=== PATIENT | male | born 1995 | race Caucasian/White ===

== ENCOUNTER 2024-04-04 23:13 | Emergency (ER) | payer OTHER, SELFPAY ==
[2024-04-04 23:19] VITALS: BP 138/78; PULSE 69; TEMP 36.6; O2SAT 100; BMI 25.5
--- NOTE | 2024-04-04 23:23 | ED_ITS ---
HPI HPI - Extremity Injury (Upper) General Chief Complaint: Extremity Injury, Upper Stated Complaint: UE PAIN Time Seen by Provider: 04/04/24 23:20 Source: patient Mode of arrival: walk-in Limitations: no limitations History of Present Illness HPI narrative: playing around tonight and fell onto his right shoulder. immediate pain. No weakness or numbness Related Data Home Medications ?Medication ?Instructions ?Recorded ?Confirmed No Known Home Medications 04/04/24 04/04/24 Allergies Allergy/AdvReac Type Severity Reaction Status Date / Time metoclopramide [From Reglan] AdvReac Anxiety Verified 04/04/24 23:24 Opioid HPI Opioid Management Most Recent Pain and Opioid Data: Last Pain Scale 7 04/04/24 23:40 Last ED Pain Assessment 04/04/24 23:29 Review of Systems ROS Status of ROS 10 or more systems reviewed and unremark able except as noted in history and below Exam Constitutional Vital Signs, click to edit/add: Last Vital Signs Temp 97.9 F 04/04/24 23:19 Pulse 69 04/04/24 23:19 Resp 16 04/04/24 23:19 BP 138/78 04/04/24 23:19 Pulse Ox 100 04/04/24 23:19 O2 Del Method Room Air 04/04/24 23:19 Common normals: no apparent distress, average body habitus, oriented x3, no limitations, healthy appearing, alert and well nourished [facility] Common normals: normocephalic and head/scalp atraumatic Eye Common normals: EOMs intact bilaterally and conjunctivae normal Chest Common normals: inspection of chest normal and palpation of chest normal Respiratory Common normals: normal respiratory effort, no retractions, no use of accessory muscles and clear to auscultation bilaterally Cardio Common normals: regular rate, regular rhythm, S1 normal heart sound and S2 normal heart sound GI Common normals: Normal to inspection, nondistended, normoactive bowel sounds present and soft to palpation Extremity Common normals: normal to inspection and full ROM Other: right humeral head tender. no deformity. right elbow and forearm/wrist neg Neuro Common normals: oriented x3, CN's II-XII intact bilaterally, moves all extremities and no focal motor deficits Psych Appearance: grossly normal Course Vital Signs Vital signs: Vital Signs Temperature 97.9 F 08/10/24 23:19 Pulse Rate 69 04/04/24 23:19 Respiratory Rate 16 04/04/24 23:19 Blood Pressure 138/78 04/04/24 23:19 Pulse Oximetry 100 04/04/24 23:19 Oxygen Delivery Method Room Air 04/04/24 23:19 Temperature 97.9 F 04/04/24 23:19 Pulse Rate 69 04/04/24 23:19 Respiratory Rate 16 04/04/24 23:19 Blood Pressure 138/78 04/04/24 23:19 Pulse Oximetry 100 04/04/24 23:19 Oxygen Delivery Method Room Air 04/04/24 23:19 MDM - Extremity Injury (Upper) MDM Narrative Medical decision making narrative: patient presents after falling and striking his left shoulder. No deformity. xray per my review is neg for fracture. N/V RUE normal. patient placed in a sling and discharged to follow up with orthopedics Discharge Plan Discharge Stand Alone Forms: Portal Instructions Chief Complaint: Extremity Injury, Upper Clinical Impression: Contusion of right shoulder Patient Disposition: Home, Self-Care Prescriptions / Home Meds: No Action No Known Home Medications Print Language: [place] Instructions: Contusion in Adults (ED) Additional Instructions: follow up with Dr Parnell Referrals: Physician,Non-Staff, [Primary Care Provider] - 1 week
--- NOTE | 2024-04-04 23:25 | XR_ITS ---
[facility] [place] [id number] Patient Name: JORGE MADRID MRN: [id number] date: 1995 Sex: M Assigned Patient Location: ER Current Patient Location: Accession/Order Number: [id number] Exam Date: 04/04/2024 23:35 Report Date: 04/05/2024 02:37 At the request of: CHANG NERI Procedure: XR shoulder RT min 2V EXAM: XR shoulder RT min 2V HISTORY: injury COMPARISON: None. TECHNIQUE: 3 views of the right shoulder FINDINGS: No acute fracture seen. Joint alignment is normal. Joint spaces are preserved. Soft tissues appear unremarkable. XR/XR shoulder RT min 2V IMPRESSION: No acute fracture or malalignment. Electronically authenticated by: LAURA NORTON Date: 04/05/2024 02:37
[2024-04-04] MEDS: IBUPROFEN 400 MG TABLET 800 MG PO (23:40)
--- NOTE | 2024-04-05 01:12 | ED.UPPEXIN1 ---
HPI HPI - Extremity Injury (Upper) General Chief Complaint: Extremity Injury, Upper Stated Complaint: UE PAIN Time Seen by Provider: 04/04/24 23:20 Source: patient Mode of arrival: walk-in Limitations: no limitations History of Present Illness HPI narrative: patient rolled his 4 edgar. States the roll bar came down on his left arm. Points to his humerus. Denies head injury. No headache or neck pain. Denies numbness of his extremities. No chest or rib pain. No complaint of abdominal pain or back pain. Related Data Home Medications ?Medication ?Instructions ?Recorded ?Confirmed No Known Home Medications 04/04/24 04/04/24 Allergies Allergy/AdvReac Type Severity Reaction Status Date / Time metoclopramide [From Reglan] AdvReac Anxiety Verified 04/04/24 23:24 Opioid HPI Opioid Management Most Recent Pain and Opioid Data: Last Pain Scale 7 04/04/24 23:40 Last ED Pain Assessment 04/04/24 23:29 Review of Systems ROS Status of ROS 10 or more systems reviewed and unremarkable except as noted in history and below Exam Constitutional Vital Signs, click to edit/add: Last Vital Signs Temp 97.9 F 04/04/24 23:19 Pulse 86 04/05/24 01:38 Resp 16 04/05/24 01:38 BP 111/59 04/05/24 01:38 Pulse Ox 97 04/05/24 01:38 O2 Del Method Room Air 04/05/24 01:38 Common normals: no apparent distress, oriented x3, healthy appearing, alert and well nourished [facility] Common normals: normocephalic and head/scalp atraumatic Eye Common normals: PERRL, EOMs intact bilaterally and conjunctivae normal Neck & C-Spine Common normals: full ROM Chest Common normals: inspection of chest normal and palpation of chest normal Respiratory Common normals: normal respiratory effort, no retractions, no use of accessory muscles and clear to auscultation bilaterally Cardio Common normals: regular rate, regular rhythm, S1 normal heart sound and S2 normal heart sound GI Common normals: Normal to inspection, nondistended, normoactive bowel sounds present, soft to palpation and non-tender Extremity Other: swelling contusion mid left humerus. Positive tenderness. No obvious deformity. Left shoulder and elbow nontender . Normal exam left forearm and hand. Neuro Common normals: oriented x3, CN's II-XII intact bilaterally, moves all extremities, no focal motor deficits and no sensory deficits noted Psych Appearance: grossly normal Course Vital Signs Vital signs: Vital Signs Temperature 97.9 F 04/04/24 23:19 Pulse Rate 69 04/04/24 23:19 Respiratory Rate 16 04/04/24 23:19 Blood Pressure 138/78 04/04/24 23:19 Pulse Oximetry 100 04/04/24 23:19 Oxygen Delivery Method Room Air 04/04/24 23:19 Temperature 97.9 F 04/04/24 23:19 Pulse Rate 86 04/05/24 01:38 Respiratory Rate 16 04/05/24 01:38 Blood Pressure 111/59 04/05/24 01:38 Pulse Oximetry 97 04/05/24 01:38 Oxygen Delivery Method Room Air 04/05/24 01:38 MDM - Extremity Injury (Upper) MDM Narrative Medical decision making narrative: patient fell onto right shoulder. Presents with pain but no deformity. xray neg for fracture. Patient placed in a sling and discharged home to follow up with orthopedics Imaging Data Chest x-ray: Radiologist's impression: ITS Impressions Shoulder X-Ray 04/04/24 23:25 IMPRESSION: No acute fracture or malalignment. Electronically authenticated by: LAURA NORTON Date: 04/05/2024 02:37 Discharge Plan Discharge Stand Alone Forms: Portal Instructions Chief Complaint: Extremity Injury, Upper Clinical Impression: Contusion of right shoulder Patient Disposition: Home, Self-Care Condition: Good Mode of Transportation: Private Vehicle Prescriptions / Home Meds: No Action No Known Home Medications Print Language: Malay Instructions: Contusion in Adults (ED) Additional Instructions: follow up with Dr Parnell Referrals: Physician,Non-Staff, [Primary Care Provider] - 1 week Cooper Parnell MD [Physician] - 04/06/24 10:45 am Discharge Date/Time: 04/05/24 01:38
[2024-04-05 01:38] VITALS: BP 111/59; PULSE 86; O2SAT 97
== END 2024-04-05 01:38 | disposition home or self-care (01) ==
PROVIDERS: Emergency Provider Internal Medicine
DX: S40.011A Contusion of right shoulder, initial encounter (principal); W19.XXXA Unspecified fall, initial encounter
CPT/HCPCS: 73030; 99283

== ENCOUNTER 2024-04-09 09:24 | Outpatient (OUT) | payer OTHER, SELFPAY ==
--- NOTE | 2024-04-09 09:31 | MR_ITS ---
The [address] [address] Patient Name: JORGE MADRID MRN: [id number] date: 1995 Sex: M Assigned Patient Location: MRI Current Patient Location: MRI Accession/Order Number: [id number] Exam Date: 04/09/2024 10:05 Report Date: 04/11/2024 12:48 At the request of: KATTY ABBASI Procedure: MR shoulder RT wo con EXAM: MR shoulder RT wo con HISTORY: Acute Pain Of Right Shoulder M25.511 Patient dove and landed directly on right shoulder. Rule out tear. COMPARISON: Right shoulder x-rays 04/04/2024. TECHNIQUE: Multiplanar multisequence MRI of the right shoulder was performed without contrast. This included axial PD fat-sat, sagittal PD, sagittal T2, sagittal STIR with coronal T1, coronal PD and coronal T2 fat sat imaging. FINDINGS: ACROMIOCLAVICULAR JOINT: No os acromiale is seen. There is capsular irregularity at the acromioclavicular joint with surrounding soft tissue edema. No widening of the acromioclavicular interval is noted. Lesser edema along the coracoclavicular ligament There is a type II acromion noted. No increased fluid is noted in the subacromial/subdeltoid bursa. ROTATOR CUFF TENDONS: No rotator cuff tendon tear is identified. No rotator cuff muscle edema or atrophy is seen. BICEPS TENDON: The biceps tendon is intact and normally located. No biceps tenosynovitis is seen. LABRUM: Subtle tear of the posterior superior labrum between 9 and 10 o'clock (series 5001, image 13 and series 8001, image 16). No paralabral cyst. GLENOHUMERAL JOINT: No significant glenohumeral joint osteoarthritis is identified. No sizable glenohumeral joint effusion is seen. No significant thickening of the inferior glenohumeral ligament is noted. BONES: The bone marrow signal intensity is age appropriate. No fracture is identified. OUTLET SPACES: No mass in the quadrilateral space or spinoglenoid notch. MR/MR shoulder RT wo con IMPRESSION: 1. Grade 1 AC separation injury. Grade 1 sprain of the coracoclavicular ligament. 2. No fracture. 3. Probable subtle tear of the posterior superior labrum between 9 and 10 o'clock. 4. No rotator cuff tear. Electronically authenticated by: DENNIS CARRANZA Date: 04/11/2024 12:48
--- OUTSIDE RECORDS SUMMARY | 2024-04-09 09:34 | XMS_ITS | CCD ---
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 SHOULD BE BASED ON THE PRIMARY CLINICAL RECORDS. [employer] [facility] provides no warranty or guarantee of the accuracy or completeness of information in this document.
== END 2024-04-09 09:25 | disposition home or self-care (01) ==
LOC: MRI 09:26
PROVIDERS: Visit Provider Orthopaedic Surgery
DX: M25.511 Pain in right shoulder (principal); S43.101A Unspecified dislocation of right acromioclavicular joint, initial encounter; S43.431A Superior glenoid labrum lesion of right shoulder, initial encounter
CPT/HCPCS: 73221